=== PATIENT | male | born 1970 | race African-American/Black ===

== ENCOUNTER 2021-11-19 13:06 | Emergency (ER) | payer OTHER ==
[~2021-11-19] VITALS: Ht 185.4 cm; Wt 73.5 kg
[2021-11-19 14:14] LABS: HEMATOCRIT 41.9 % (42.0-52.0); HEMOGLOBIN 13.3 gm/dL (14.0-18.0); MCH 28.5 pg (26.0-34.0); MCHC 31.8 g/dL (28.0-37.0); MCV 89.5 fL (80.0-100.0); PLATELET COUNT 215 thou/uL (150-400); RBC 4.68 mil/uL (4.50-6.00); RDW 13.3 % (10.5-14.5); WBC 2.8 thou/uL (4.0-11.0)
[2021-11-19 14:21] LABS: CALCIUM 8.9 mg/dL (8.5-10.1); CREATININE 0.8 mg/dL (0.7-1.3); POTASSIUM 4.3 mmol/L (3.5-5.1)
[2021-11-19 14:30] LABS: ALBUMIN 3.6 g/dL (3.4-5.0); TOTAL BILIRUBIN 0.4 mg/dL (0.2-1.0); TOTAL PROTEIN 6.7 g/dL (6.4-8.2)
[2021-11-19 15:03] LABS: ABSOLUTE NEUTROPHILS 1.9 thou/uL (1.4-8.2); PLATELET ESTIMATE NORMAL
[2021-11-19 15:50] VITALS: BP 135/94
--- NOTE | 2021-11-19 17:26 | EKG ---
[address] [address] [place] [address] ELECTROCARDIOGRAM REPORT Name: DAVID SHERMAN Room #: DEP [facility] [id number] Admission: 11/19/21 Attend Phys: Discharge: 11/19/21 Date of : 70 Report #: [id number] [facility] ED Test Date: 2021-11-19 Test Time: 13:19:48 Pat Name: DAVID SHERMAN Department: Room: Gender: M Excavating Supervisor: Rafa : 1970 Requested By: Carin Garrison Order Number: [id number] MD: Sushant Mclaughlin Measurements Intervals [place] Rate: 72 P: 60 MS: 133 QRS: -24 QRSD: 99 T: 66 QT: 398 QTc: 436 Interpretive Statements Sinus rhythm Ventricular premature complex Borderline left axis deviation Abnormal R-wave progression, early transition Compared to ECG 10/27/2014 05:57:48 Ventricular premature complex(es) now present Early repolarization no longer present Electronically Signed On 11-19-2021 17:25:59 [employer]ATCH [employer] by Sushant Mclaughlin [email or web address] <ELECTRONICALLY SIGNED> By: Sushant Mclaughlin MD, [facility] 11/19/21 [id number] Sushant Mclaughlin MD, [facility] /EPI
== END 2021-11-19 15:50 | disposition home or self-care (01) ==
LOC: ER 13:06
PROVIDERS: Nurse Practitioner
DX: S60.221A Contusion of right hand, initial encounter (principal); R55 Syncope and collapse; J45.909 Unspecified asthma, uncomplicated; Z88.8 Allergy status to other drugs, medicaments and biological substances; W19.XXXA Unspecified fall, initial encounter; Y93.89 Activity, other specified; Y92.89 Other specified places as the place of occurrence of the external cause; Y99.8 Other external cause status